=== PATIENT | male | born 1980 | race Caucasian/White ===

== ENCOUNTER 2024-02-12 05:38 | Emergency (ER) | payer OTHER ==
[~2024-02-12] VITALS: Ht 182.9 cm; Wt 184.6 kg
[2024-02-12 05:40] VITALS: TEMP 97.3
[2024-02-12] MEDS ORDERED: HEPARIN SOD/DEXTROSE 5% 25000 UNIT/250 ML BAG IV SCH (07:30)
[2024-02-12] MEDS: SODIUM CHLORIDE 0.9% 1000ML 1,000 ML IV SCH (08:06)
[2024-02-12] MEDS: HEPARIN 25,000 UNIT/D5W 250ML 250 ML IV SCH (08:15)
[2024-02-12] MEDS: HEPARIN SOD (PORCINE) 5,000 UNIT/ML VIAL IV ONE (08:27)
[2024-02-12 09:10] VITALS: PULSE 77; RESP 18; O2SAT 95
[2024-02-12] MEDS ORDERED: IOPAMIDOL 370 MG/ML 100 ML INFUS..BTL INJ ONE (09:19)
== END 2024-02-12 09:55 | disposition short-term general hospital (02) ==
LOC: FSED 06:04
DX: R60.9 Edema, unspecified (principal); I26.99 Other pulmonary embolism without acute cor pulmonale; R09.02 Hypoxemia; I50.810 Right heart failure, unspecified; R73.9 Hyperglycemia, unspecified; E66.01 Morbid (severe) obesity due to excess calories
CPT/HCPCS: 71260; 80053; 82553; 84484; 85025; 85379; 85610; 93970; 96360; 96365; 96374; 99284; J1644; J7030; Q9967